=== PATIENT | female | born 1950 | race Hispanic/Latino ===

== ENCOUNTER 2018-12-29 13:07 | Emergency (ER) | payer BC, MEDICARE ==
[2018-12-29] MEDS ORDERED: DIPHENHYDRAMINE HCL 25 MG CAPSULE ONE (15:08)
[2018-12-29] MEDS ORDERED: DEXAMETHASONE SOD PHOSPHATE 10MG/ML 1ML VIAL ONE (15:08)
== END 2018-12-29 15:40 | disposition home or self-care (01) ==
LOC: EDH 13:07
DX: L23.9 Allergic contact dermatitis, unspecified cause (principal); E11.9 Type 2 diabetes mellitus without complications; E78.5 Hyperlipidemia, unspecified; I10 Essential (primary) hypertension; E07.9 Disorder of thyroid, unspecified; Z87.891 Personal history of nicotine dependence
CPT/HCPCS: 96372; 99284; J1100; Q0163

== ENCOUNTER → 2022-05-02 | Outpatient (CLI) | payer OTHER ==
[~2022-05-02] MED LIST: GADOTERATE MEGLUMINE 10 MMOL/20 ML VIAL IV ONE
== END | disposition home or self-care (01) ==
LOC: RAH 12:36
PROVIDERS: ATTEND Family Medicine
DX: I67.2 Cerebral atherosclerosis (principal); G44.209 Tension-type headache, unspecified, not intractable; R47.01 Aphasia; I70.8 Atherosclerosis of other arteries; R55 Syncope and collapse
CPT/HCPCS: 70544; 70553; A9575